=== PATIENT | female | born 1970 | race African-American/Black ===

== ENCOUNTER 2017-11-01 00:14 | Inpatient (IN) ==
[2017-11-01] MEDS ORDERED: diphenhydrAMINE 50 MG/1 ML VIAL IV STA (00:49)
[2017-11-01] MEDS ORDERED: ONDANSETRON 4 MG/2 ML VIAL IV STA (00:49)
[2017-11-01] MEDS ORDERED: SODIUM CHLORIDE 0.9% 500 ML IV STA (00:49)
[2017-11-01] MEDS ORDERED: HYDROmorphone 2 MG/1 ML VIAL IV STA (00:49)
[2017-11-01] MEDS ORDERED: ONDANSETRON 4 MG/2 ML VIAL ONE ×3 (00:53→12:51)
[2017-11-01] MEDS ORDERED: PROPOFOL 200 MG/20 ML VIAL IV STA (01:12)
[2017-11-01] MEDS ORDERED: hydrALAZINE 20 MG/1 ML VIAL ONE (01:20)
[2017-11-01] MEDS ORDERED: hydrALAZINE 20 MG/1 ML VIAL IV STA (01:20)
[2017-11-01 02:59] LABS: Basophils % 0.4 % (0.0-0.8); Eosinophils % 0.5 % (0.00-10.9); Hematocrit 39.3 VOL% (35.7-47.0); Immature Granulocytes % 0.3 %; Immature Granulocytes Absolute 0.02 #; Lymphocytes # 1.5 10*3/uL (1.4-4.0); Lymphocytes % 20.4 % (21.3-54.2); Mean Corpuscular HGB Conc 33.1 GM/DL (32-36); Mean Corpuscular Hemoglobin 30 PG (27-34); Mean Corpuscular Volume 89.3 FL (87-102); Mean Platelet Volume 10.2 FL (9.6-12.0); Monocytes # 0.5 10*3/uL (0.11-0.8); Monocytes % 6.8 % (1.7-12.7); Neutrophils # 5.3 10*3/uL (1.4-7.4); Neutrophils % 71.6 % (38.7-73.9); Platelet Count 304 T/CUMM (130-400); Red Cell Distribution Width 13.2 % (9.3-17.3); White Blood Count 7.4 T/CUMM (4-12)
[2017-11-01 03:04] LABS: Apearance,Urine Slightly Hazy (Clear); Bilirubin,Urine Negative (Negative); Blood, Urine Negative (Negative); Glucose,Urine (UA) Negative (Negative); Ketones,Urine Negative (Negative); Mucus,Urine Occasional /LPF (Occasional); Nitrite,Urine Negative (Negative); Protein,Urine Negative; RBC,Urine 1 /HPF (0-4); Renal Epithelial Cells,Urine Occasional /HPF (<1); Squamous Epithelial Cell,Urine Occasional /HPF (0-10); Urine Color Yellow (Yellow); Urine Urobilinogen < 2.0 EU/DL (0.2-1.0); WBC,Urine <1 /HPF (0-6)
[2017-11-01 03:09] LABS: PT Patient Result 10.6 SECS
[2017-11-01 03:12] LABS: Barbiturates Screen,Urine Negative (Negative); Benzodiazepines Screen,Urine Negative (Negative); Cannabinoid Screen,Urine Negative (Negative); Opiate Screen,Urine Negative (Negative); Phencyclidine Screen,Urine Negative (Negative)
[2017-11-01 03:20] LABS: Alanine Aminotransferase 16 U/L (13-56); Albumin 3.7 G/DL (3.4-5.0); Alkaline Phosphatase 77 U/L (45-117); Aspartate Amino Transferase 13 U/L (0-37); Blood Urea Nitrogen 7 MG/DL (7-18); Calcium 8.1 MG/DL (8.5-10.1); Glucose 118 MG/DL (74-106); Osmolality,Calculated 275.5 MOS/KG (273-304); Potassium 3.2 MMOL/L (3.5-5.1); Sodium 139 MMOL/L (136-145)
[2017-11-01] MEDS ORDERED: SODIUM CHLORIDE 0.9% 1,000 ML IV SCH (03:29)
[2017-11-01] MEDS ORDERED: HYDROmorphone 2 MG/1 ML VIAL IV PRN (03:29)
[2017-11-01] MEDS ORDERED: hydrALAZINE 20 MG/1 ML VIAL IV PRN (03:29)
[2017-11-01] MEDS ORDERED: ONDANSETRON 4 MG/2 ML VIAL IV PRN ×2 (03:29→12:53)
[2017-11-01] MEDS ORDERED: MAGNESIUM HYDROXIDE SUSP 30 ML UDCUP PO PRN ×2 (03:29→11:33)
[2017-11-01] MEDS ORDERED: ceFAZolin 2,000 MG in PREMIX 1 EACH IV ONE ×2 (06:00→09:00)
[2017-11-01] MEDS ORDERED: FUROSEMIDE 20 MG TABLET PO PRN (07:29)
[2017-11-01] MEDS ORDERED: ALBUTEROL 1.25 MG/3 ML NEB RESP TX PRN (07:30)
[2017-11-01] MEDS: amLODIPine 10 MG TABLET PO SCH (09:21)
[2017-11-01] MEDS: LOSARTAN/HCTZ 50-12.5 MG TABLET PO SCH (09:21)
[2017-11-01] MEDS ORDERED: ACETAMINOPHEN 325 MG TABLET PO PRN (11:33)
[2017-11-01] MEDS ORDERED: PROMETHAZINE 25 MG/1 ML VIAL IM PRN (11:33)
[2017-11-01] MEDS: HYDROmorphone 2 MG/1 ML VIAL IV PRN ×2 (12:48→13:00)
[2017-11-01] MEDS ORDERED: HYDROmorphone 2 MG/1 ML VIAL ONE (12:49)
[2017-11-01] MEDS ORDERED: DEXAMETHASONE 10 MG/1 ML VIAL ONE (12:50)
[2017-11-01] MEDS ORDERED: SEVOFLURANE 1 UNIT/15 MINUTE INH ONE (12:50)
[2017-11-01] MEDS ORDERED: MIDAZOLAM 2 MG/2 ML VIAL ONE (12:50)
[2017-11-01] MEDS ORDERED: fentaNYL 100 MCG/2 ML VIAL ONE (12:50)
[2017-11-01] MEDS ORDERED: PROPOFOL 200 MG/20 ML VIAL IV ONE (12:50)
[2017-11-01] MEDS ORDERED: LACTATED RINGERS 1,000 ML IV ONE (12:51)
[2017-11-01] MEDS ORDERED: KETOROLAC 30 MG/1 ML VIAL ONE (12:51)
[2017-11-01] MEDS ORDERED: ACETAMINOPHEN 1,000 MG/100 ML VIAL IV ONE (12:51)
[2017-11-01] MEDS: ALBUTEROL 1.25 MG/3 ML NEB RESP TX SCH ×2 (13:52→19:56)
[2017-11-01] MEDS: SODIUM CHLOR 0.9% KCL 40 MEQ 40 MEQ/1,000 ML BAG IV SCH ×2 (14:00→21:13)
[2017-11-01] MEDS: LACTATED RINGERS 1,000 ML IV SCH (15:05)
[2017-11-01] MEDS: ceFAZolin 1,000 MG in SYRINGE 1 EACH IV SCH (18:36)
[2017-11-02] MEDS: ceFAZolin 1,000 MG in SYRINGE 1 EACH IV SCH ×2 (01:40→10:50)
[2017-11-02] MEDS: ALBUTEROL 1.25 MG/3 ML NEB RESP TX SCH ×2 (02:17→07:25)
[2017-11-02] MEDS: LACTATED RINGERS 1,000 ML IV SCH (02:26)
[2017-11-02] MEDS: SODIUM CHLOR 0.9% KCL 40 MEQ 40 MEQ/1,000 ML BAG IV SCH ×2 (05:18→12:24)
[2017-11-02 07:04] LABS: Osmolality,Calculated 279.3 MOS/KG (273-304)
[2017-11-02 07:36] VITALS: BP 123/70
[2017-11-02] MEDS: LOSARTAN/HCTZ 50-12.5 MG TABLET PO SCH (08:40)
[2017-11-02] MEDS: amLODIPine 10 MG TABLET PO SCH (08:40)
== END 2017-11-02 12:18 | disposition home or self-care (01) | DRG 313 ==
LOC: N.ED 00:14 → N.EDINP 01:36 → N.3E 02:08
PROVIDERS: ADMIT Orthopaedic Surgery; ATTEND Orthopaedic Surgery

== ENCOUNTER 2019-12-06 22:15 | Observation (INO) ==
[2019-12-06] MEDS ORDERED: ONDANSETRON 4 MG/2 ML VIAL IV STA (23:50)
[2019-12-06] MEDS ORDERED: NITROGLYCERIN 2% OINT 1 INCH/GM PACK TOP STA (23:50)
[2019-12-06] MEDS ORDERED: HYDROmorphone 2 MG/1 ML VIAL IV STA (23:50)
[2019-12-06] MEDS ORDERED: ALUM/MAG/SIMETH/LIDO VISC 1:1 30 ML BOTTLE PO STA (23:50)
[2019-12-06 23:58] LABS: Basophils # 0.1 10*3/uL (0.0-0.2); Basophils % 0.8 % (0.0-0.8); Eosinophils # 0.2 10*3/uL (0.0-0.87); Eosinophils % 2.7 % (0.00-10.9); Hematocrit 37.4 VOL% (35.7-47.0); Hemoglobin 12.7 GM/DL (12.0-16.0); Immature Granulocytes % 0.3 %; Immature Granulocytes Absolute 0.02 #; Lymphocytes # 2.9 10*3/uL (1.4-4.0); Lymphocytes % 38.9 % (21.3-54.2); Mean Corpuscular Volume 87.8 FL (87-102); Mean Platelet Volume 11.1 FL (9.6-12.0); Neutrophils % 49.3 % (38.7-73.9); Platelet Count 319 T/CUMM (130-400); Red Blood Count 4.26 MC/CUMM (3.8-5.5); Red Cell Distribution Width 13.5 % (9.3-17.3); White Blood Count 7.5 T/CUMM (4-12)
[2019-12-07 00:06] LABS: PT Patient Result 10.3 SECS (9.8-11.9)
[2019-12-07 00:13] LABS: Alanine Aminotransferase 18 U/L (13-56); Albumin 3.2 G/DL (3.4-5.0); Alkaline Phosphatase 84 U/L (45-117); Aspartate Amino Transferase 11 U/L (0-37); Bilirubin,Total < 0.39 MG/DL (0.2-1.0); Blood Urea Nitrogen 6 MG/DL (7-18); Calcium 8.9 MG/DL (8.5-10.1); Estimated Glom Filtration Rate 100 ML/MIN; Glucose 84 MG/DL (74-106); Osmolality,Calculated 277.3 MOS/KG (273-304); Total Protein 7.4 G/DL (6.4-8.3)
[2019-12-07] MEDS ORDERED: ENOXAPARIN 100 MG/ML SYRINGE SUBCUT STA (00:29)
[2019-12-07] MEDS ORDERED: GLUCAGON 1 MG VIAL IM PRN (00:51)
[2019-12-07] MEDS ORDERED: DEXTROSE 50% 25 GM/50 ML VIAL IV PRN (00:51)
[2019-12-07] MEDS ORDERED: ACETAMINOPHEN 325 MG TABLET PO PRN (00:51)
[2019-12-07] MEDS ORDERED: ONDANSETRON 4 MG/2 ML VIAL IV PRN (00:51)
[2019-12-07] MEDS ORDERED: NITROGLYCERIN 2% OINT 1 INCH/GM PACK TOP ONE (00:55)
[2019-12-07] MEDS ORDERED: ENOXAPARIN 40 MG/0.4 ML SYRINGE SUBCUT SCH (01:00)
[2019-12-07 01:23] LABS: Risk Ratio 3.7; VLDL CHOLESTEROL 23.6 MG/DL
[2019-12-07] MEDS ORDERED: HYDROmorphone 2 MG/1 ML VIAL IV PRN (01:39)
[2019-12-07] MEDS ORDERED: INFLUENZA VIRUS VACCINE 0.5 ML SYRINGE IM ONE (03:42)
[2019-12-07] MEDS ORDERED: FUROSEMIDE 20 MG TABLET PO PRN (08:06)
[2019-12-07] MEDS ORDERED: KETOROLAC 15 MG/1 ML VIAL IV PRN (08:40)
[2019-12-07] MEDS ORDERED: GABAPENTIN 100 MG CAPSULE PO PRN (08:40)
[2019-12-07] MEDS ORDERED: amLODIPine 10 MG TABLET PO SCH (09:00)
[2019-12-07] MEDS ORDERED: PANTOPRAZOLE 40 MG TABLET PO SCH (09:00)
[2019-12-07 11:50] VITALS: BP 136/83
== END 2019-12-07 14:49 | disposition home or self-care (01) ==
LOC: N.EDINP 22:15 → N.ED 22:15 → N.TELES 12-07 02:21
PROVIDERS: ADMIT Family Medicine; ATTEND Family Medicine